=== PATIENT | female | born 1980 | race Caucasian/White ===

== ENCOUNTER → 2018-01-27 14:01 | Outpatient (CLI) | payer MEDICARE, OTHER, SELFPAY ==
--- NOTE | 2018-01-27 14:03 | US_ITS ---
US transvaginal HISTORY: Pelvic pain, dysfunctional uterine bleeding ITS.REASON: pelvic pain ORDERING PHYSICIAN: Weston Velasco MD PATIENT AGE: 37 years FINDINGS: The uterus measures 8 x 4 x 4 cm with a combined endometrial thickness of 7 mm. No uterine mass or other significant anomalies The left ovary is 3 x 2.6 cm. Blood flow is present. The right ovary is 3 x 2.2 cm. Right ovary was difficult to visualize only well seen on transabdominal images. There is a 2 cm right ovarian cyst. No cul-de-sac fluid evident. IMPRESSION: 2 cm right ovarian cyst otherwise negative pelvic ultrasound
== END ==
PROVIDERS: Family Provider Family Medicine; PCP Family Medicine; Visit Provider Obstetrics & Gynecology
DX: R10.2 Pelvic and perineal pain (principal)
CPT/HCPCS: 76830

== ENCOUNTER → 2018-02-02 14:32 | Outpatient (CLI) | payer MEDICARE, OTHER, SELFPAY ==
[2018-02-02 16:04] LABS: Thyroid Stimulating Hormone 1.36 uIU/ml (0.358-3.740)
== END ==
PROVIDERS: PCP Family Medicine; Visit Provider Obstetrics & Gynecology
DX: R53.83 Other fatigue (principal); E66.9 Obesity, unspecified
CPT/HCPCS: 36415; 84443

== ENCOUNTER → 2018-08-15 12:23 | Outpatient (CLI) | payer MEDICARE, OTHER, SELFPAY ==
[2018-08-15 13:54] LABS: Urine Pregnancy, HCG Qual. Negative (Negative)
[2018-08-15 13:55] LABS: Amphetamine/Metha Screen,Urine Negative ng/mL (<1000); Barbiturates Screen,Urine Negative ng/mL (<200); Benzodiazepines Screen,Urine Negative ng/mL (<200); Cannabinoid Screen,Urine Negative ng/mL (<50); Cocaine Screen,Urine Negative ng/mL (<300); Methadone Screen,Urine Negative ng/mL (<300); Opiate Screen,Urine Negative ng/mL (<300); Phencyclidine Screen,Urine Negative ng/mL (<25)
[2018-08-15 15:01] LABS: Chol/HDL Ratio 2.9 (1-3.5); Cholesterol 209 mg/dL (140-200); HDL Cholesterol 71 mg/dL (29-89); LDL Cholesterol 124 mg/dL (0-130); Triglycerides 70 mg/dL (30-200); VLDL Cholesterol 14 mg/dL (0-40)
== END ==
PROVIDERS: PCP Family Medicine; Visit Provider Psychiatry & Neurology Psychiatry
DX: F31.9 Bipolar disorder, unspecified (principal); F43.12 Post-traumatic stress disorder, chronic; R45.86 Emotional lability; Z79.899 Other long term (current) drug therapy
CPT/HCPCS: 36415; 80061; 80305; 81025

== ENCOUNTER → 2018-09-03 09:43 | Outpatient (CLI) | payer MEDICARE, OTHER, SELFPAY ==
--- NOTE | 2018-09-03 09:54 | XR_ITS ---
XR shoulder RT min 2V Ordering Physician: Mariposa Jeronimo MD Patient Age: 37 years: Female HISTORY: ITS.REASON: rt shoulder. Fell off ladder one week ago with numbness and tingling in the hand. TECHNIQUE: 3 views right shoulder. AP internal and external rotation view along with Y view COMPARISON : 05/22/2018 right clavicle radiograph and right shoulder radiograph from the same day. FINDINGS No fracture nor dislocation The glenohumeral joint appears intact. Humeral head and neck appear intact. AC joint stable and overall satisfactory. There is a tiny lucency probable small subchondral cyst at the acromial margin of the AC joint-this measures up to 2.3 mm. Likely was present on previous clavicle study stable feature.. No other erosive changes evident elsewhere. Sidney the right lung clear. No cervical ribs. Right shoulder appears unchanged since 05/22/2018 studies otherwise IMPRESSION: Right shoulder intact with no fracture nor dislocation. . Glenohumeral joint is intact. AC joint intact. No acute or new findings versus May 2018.
== END ==
PROVIDERS: PCP Family Medicine; Visit Provider Orthopaedic Surgery
DX: M67.919 Unspecified disorder of synovium and tendon, unspecified shoulder (principal)
CPT/HCPCS: 73030

== ENCOUNTER → 2019-01-14 13:53 | Outpatient (CLI) | payer MEDICARE, OTHER, SELFPAY ==
--- NOTE | 2019-01-14 13:54 | CT_ITS ---
PROCEDURE: CT ABDOMEN PELVIS WO CON CLINICAL HISTORY: kidney stone Right flank pain COMPARISON: No exams were available for comparison TECHNIQUE: Axial images obtained with sagittal and coronal reformats. All CT scans at the facility use one or more dose reduction, viz: automated exposure control, ma/kV adjustment per patient size (including targeted exams where dose is matched to indication, i.e. head), or iterative reconstruction technique. FINDINGS: There is a calcified granuloma in the right middle lobe. There are minimal atelectatic or fibrotic changes in the lingula. The liver, gallbladder, spleen, and adrenal glands have an unremarkable appearance. There has been a prior left nephrectomy. The right kidney has an unremarkable appearance. No hydronephrosis. No renal or ureteral calculi. No evidence of appendicitis, intestinal obstruction, or free air. No evidence of diverticulitis. No pelvic mass abnormal fluid collection or focal inflammatory change of the pelvis. Unremarkable appearing urinary bladder. No acute bony findings. IMPRESSION: Prior left nephrectomy. No evidence of mass within the nephrectomy bed. No right renal calculi or ureteral calculi. Unremarkable appearing appendix No acute finding Dictated by: Marquis Abebe MD 01/14/2019 16:55 Signed by: <Electronically signed by Marquis Abebe MD in [facility]> 01/14/2019 16:55
== END ==
PROVIDERS: PCP Family Medicine; Visit Provider Urology
DX: N20.0 Calculus of kidney (principal)
CPT/HCPCS: 74176

== ENCOUNTER → 2019-10-04 14:05 | Outpatient (CLI) | payer MEDICARE, OTHER, SELFPAY ==
[2019-10-04 15:58] LABS: Chloride 101 mmol/L (98-107); Sodium 137 mmol/L (136-145)
[2019-10-04 16:00] LABS: Blood Urea Nitrogen 11 mg/dl (7-17); Estimated Glomerular Filt Rate 111 ml/min (>60); GFR (African American) 135 ML/MIN (>60)
[2019-10-04 16:01] LABS: Alanine Aminotransferase 28 U/L (12-78); Albumin Level 3.4 g/dl (3.5-5.0); Alkaline Phosphatase 111 U/L (38-126); Aspartate Amino Transferase 28 U/L (14-36); Bilirubin,Total 0.2 mg/dl (0.2-1.3); Calcium 8.9 mg/dl (8.4-10.2); Carbon Dioxide 33 mmol/L (22.0-30.0); Globulin 3.4 g/dL (1.3-3.2); Glucose 115 mg/dl (74-100); Total Protein,Serum 6.8 g/dl (6.3-8.2)
[2019-10-04 16:33] LABS: Thyroid Stimulating Hormone 2.56 uIU/mL (0.465-4.68)
[2019-10-06 12:56] LABS: FSH 3.8 mIU/mL (.); LH 0.4 mIU/mL (.)
== END ==
PROVIDERS: Visit Provider Obstetrics & Gynecology
DX: N28.9 Disorder of kidney and ureter, unspecified (principal); R09.89 Other specified symptoms and signs involving the circulatory and respiratory systems
CPT/HCPCS: 36415; 80053; 83001; 83002; 84443

== ENCOUNTER → 2020-01-12 09:33 | Outpatient (CLI) | payer MEDICARE, OTHER, SELFPAY ==
--- NOTE | 2020-01-12 09:33 | US_ITS ---
PROCEDURE: US TRANSVAGINAL CLINICAL INDICATION: US- pelvic pain amenorrhea COMPARISON: US TRANVAG US transvaginal from 01/27/2018 FINDINGS: UTERUS: 7cm x 4cmx 3cm with a combined endometrial thickness of 5mm LEFT OVARY: [id number] with a volume of 2.2ml. RIGHT OVARY: [id number] with a volume of 1.8ml. There is a 1.9 cm area of decreased echogenicity along the anterior aspect of the uterus on the right consistent with a fibroid. No cul-de-sac fluid. Unremarkable adnexa IMPRESSION: Small uterine fibroid otherwise negative pelvic ultrasound Dictated b Marquis Abebe MD 01/12/2020 17:01 Marquis Abebe MD in [facility] 01/12/2020 17:01
== END ==
PROVIDERS: PCP Family Medicine; Visit Provider Obstetrics & Gynecology
DX: N91.2 Amenorrhea, unspecified (principal); R10.2 Pelvic and perineal pain
CPT/HCPCS: 76830

== ENCOUNTER → 2020-04-10 11:33 | Outpatient (CLI) | payer MEDICARE, OTHER, SELFPAY ==
[2020-04-10 11:55] LABS: Basophils # 0.1 K/mm3 (0-0.2); Basophils % 0.8 % (0.1-2.0); Eosinophils # 0.3 K/mm3 (0.0-0.4); Eosinophils % 2.6 % (0.1-12.0); Hematocrit 49.4 % (37.0-47.0); Hemoglobin 14.9 g/dL (12.2-16.2); Lymphocytes # 2.8 K/mm3 (0.7-4.5); Lymphocytes % 26.3 % (10-50); Mean Corpuscular HGB Conc 30.1 g/dL (31.8-35.4); Mean Corpuscular Hemoglobin 26.8 pg (27.0-31.2); Mean Platelet Volume 7.2 fl (7.4-10.4); Monocytes # 0.5 K/mm3 (0.1-1.0); Monocytes % 4.6 % (1.7-9.3); Neutrophils # 7.1 K/mm3 (1.8-7.8); Neutrophils % 65.8 % (37.0-80.0); Platelet Count 431 K/mm3 (142-424); Red Blood Count 5.55 M/mm3 (4.20-5.40); Red Cell Distribution Width 16.1 % (11.5-17.5); White Blood Count 10.8 K/mm3 (4.8-10.8)
[2020-04-10 13:52] LABS: Chloride 99 mmol/L (98-107); Potassium 4.7 mmoL/L (3.5-5.1); Sodium 139 mmol/L (136-145)
[2020-04-10 13:54] LABS: Alanine Aminotransferase 37 U/L (12-78); Aspartate Amino Transferase 33 U/L (14-36); Bilirubin,Total 0.5 mg/dl (0.2-1.3); Blood Urea Nitrogen 10 mg/dl (7-17); Estimated Glomerular Filt Rate 111 ml/min (>60); GFR (African American) 134 ML/MIN (>60)
[2020-04-10 13:55] LABS: Albumin Level 3.7 g/dl (3.5-5.0); Alkaline Phosphatase 161 U/L (38-126); Anion Gap 7.7 mEq/L (5-15); Calcium 9.1 mg/dl (8.4-10.2); Carbon Dioxide 37 mmol/L (22.0-30.0); Chol/HDL Ratio 5.5 (1-3.5); Cholesterol 240 mg/dl (140-200); Globulin 3.6 g/dL (1.3-3.2); Glucose 169 mg/dl (74-100); HDL Cholesterol 44 mg/dl (40-60); Total Protein,Serum 7.3 g/dl (6.3-8.2); Triglycerides 189 mg/dl (30-150); VLDL Cholesterol 38 mg/dL (0-40)
[2020-04-10 14:26] LABS: Thyroid Stimulating Hormone 1.77 uIU/mL (0.465-4.68)
[2020-04-10 14:48] LABS: Hemoglobin A1C 8.1 % (4.0-6.0)
[2020-04-10 15:26] LABS: Barbiturates Screen,Urine Negative ng/ml (<200)
[2020-04-10 15:27] LABS: Amphetamine/Metha Screen,Urine Negative ng/ml (<1000); Benzodiazepines Screen,Urine Negative ng/ml (<200)
[2020-04-10 15:28] LABS: Cocaine Screen,Urine Negative ng/ml (<300); Methadone Screen,Urine Negative ng/ml (<300)
[2020-04-10 15:29] LABS: Cannabinoid Screen,Urine Positive ng/ml (<50)
[2020-04-10 15:30] LABS: Opiate Screen,Urine Negative ng/ml (<300); Phencyclidine Screen,Urine Negative ng/ml (<25)
== END ==
PROVIDERS: Visit Provider Nurse Practitioner Psychiatric/Mental Health
DX: F31.9 Bipolar disorder, unspecified (principal); Z79.899 Other long term (current) drug therapy
CPT/HCPCS: 36415; 80053; 80061; 80305; 83036; 84443; 85025

== ENCOUNTER 2020-08-19 12:12 | Emergency (ER) | payer MEDICARE, OTHER, SELFPAY ==
[2020-08-19 12:13] VITALS: BP 125/94; PULSE 96; RESP 18; TEMP 36.7; O2SAT 97; BMI 45.1
--- NOTE | 2020-08-19 12:28 | CT_ITS ---
PROCEDURE: CT HEAD/BRAIN WO CON CLINICAL INDICATION: headache, intractable COMPARISON: No exams were available for comparison TECHNIQUE: Axial images obtained. All CT scans at the facility use one or more dose reduction, viz: automated exposure control, ma/kV adjustment per patient size (including targeted exams where dose is matched to indication, i.e. head), or iterative reconstruction technique. FINDINGS: No midline shift, mass effect, intracranial hemorrhage, hydrocephalus, or extra-axial fluid collection is evident. The calvarium has an unremarkable appearance. No mastoid effusion. No sinus air-fluid level. IMPRESSION: No acute intracranial finding Dictated by: Marquis Abebe MD 08/19/2020 14:13 Marquis Abebe MD in [facility] 08/19/2020 14:13
--- NOTE | 2020-08-19 12:29 | CT_ITS ---
PROCEDURE: CT CERVICAL SPINE WO CON CLINICAL INDICATION: midline c spine tenderness Neck injury with pain, contusion/abrasion or hematoma, cervical sprain/strain the COMPARISON: No exams were available for comparison TECHNIQUE: Axial images obtained with sagittal and coronal reformats. All CT scans at the facility use one or more dose reduction, viz: automated exposure control, ma/kV adjustment per patient size (including targeted exams where dose is matched to indication, i.e. head), or iterative reconstruction technique. Axial spiral CT scanning performed of the cervical spine beginning at the base of the skull and continuing to the upper T-spine. 3-D multiplanar reconstruction with 3-D manipulation of volumetric data set in image rendering was completed by the radiologist and/or technologist with the supervision of the radiologist on independent workstation. FINDINGS: No fracture nor subluxation is evident. Normal prevertebral soft tissues. Facets, neural foramen and vertebral bodies intact and unremarkable. Normal C1/C2 relationships. Apices of lungs are clear with no acute findings. IMPRESSION: Cervical spine intact with no fracture nor subluxation. Dictated by: Marquis Abebe MD 08/19/2020 14:15 Marquis Abebe MD in [facility] 08/19/2020 14:15
--- NOTE | 2020-08-19 12:34 | HMH.EDHA ---
ED Disposition Clinical Impression: Migraine Qualifiers: Migraine type: without aura Status migrainosus presence: without status migrainosus Intractability: not intractable Qualified Code(s): G43.009 - Migraine without aura, not intractable, without status migrainosus Disposition: Home, Self-Care Condition on Discharge: Good Instructions: Migraine -- Adult, DI for Sinus Headache Referrals: Michael Ha [Primary Care Provider] - Time of Disposition: 15:45 - Critical Care Critical Care Time: No Attestation: On 08/19/20, the high probability of a clinically significant, sudden or life threatening deterioration of the following system(s) required my full and direct attention, intervention and personal management. The time I documented below is in addition to time spent performing reported procedures but includes the following listed in this critical care notation. Medical Decision Making - Chris Inquiry Pt receiving controlled substance: No Vital Signs: 08/19/20 12:13 08/19/20 14:01 08/19/20 14:31 Temperature 98.1 F Temperature Source Oral Pulse Rate 90 91 H Pulse Rate [Left Radial] 96 H Respiratory Rate 18 Blood Pressure 153/87 H 169/93 H Blood Pressure [Right Arm] 125/94 H Blood Pressure Mean 104 112 Blood Pressure Mean [Right Arm] 104 Blood Pressure Source [Right Arm] Automatic Cuff Blood Pressure Position [Right Arm] Sitting 02 Sat by Pulse Oximetry 97 94 L 95 Oxygen Delivery Method Room Air Room Air Room Air - Lab Data Lab Results 08/19/20 12:45: WBC 11.2 H, RBC 5.17, Hgb 14.2, Hct 46.0, MCV 88.8, MCH 27.5, MCHC 31.0 L, RDW 14.8, Plt Count 404, MPV 6.8 L, Neut % (Auto) 61.0, Lymph % (Auto) 31.2, Keith % (Auto) 5.5, Eos % (Auto) 1.8, Baso % (Auto) 0.6, Neut # (Auto) 6.9, Lymph # (Auto) 3.5, Keith # (Auto) 0.6, Eos # (Auto) 0.2, Baso # (Auto) 0.1 08/19/20 12:45: Sodium 138, Potassium 4.2, Chloride 104, Carbon Dioxide 28, Anion Gap 10.2, BUN 7, Creatinine 0.70, Estimated Creat Clear 100, Estimated GFR 93, Est GFR ( Amer) 112, Glucose 169 H, Calcium 9.4, Total Bilirubin 0.3, AST 32, ALT 34, Alkaline Phosphatase 139 H, C-Reactive Protein 39.2 H, Total Protein 7.6, Albumin 4.0, Globulin 3.6 H, Albumin/Globulin Ratio 1.1 Result diagrams: 08/19/20 12:45 08/19/20 12:45 Orders (Tests/Meds): ED MEDICATIONS Discontinued Medications Generic Name Dose Route Start Last Admin Trade Name Freq PRN Reason Stop Dose Admin Diphenhydramine HCl 25 mg 08/19/20 12:31 08/19/20 13:15 Diphenhydramine 50mg/Ml Vial IV 08/19/20 12:32 25 mg ONCE ONE Administration Sodium Chloride 1,000 mls @ 999 mls/hr 08/19/20 12:45 08/19/20 13:08 Sod Chlor 0.9% 1000ml Bag IV 08/19/20 13:45 999 mls/hr .Q1H1M SKIP Administration Magnesium Sulfate 2 gm/ Sodium 104 mls @ 100 mls/hr 08/19/20 14:31 08/19/20 14:38 Chloride IV 08/19/20 15:33 100 mls/hr ONCE ONE Administration Ketorolac Tromethamine 15 mg 08/19/20 12:30 08/19/20 13:17 Ketorolac 30mg/Ml Vial IV 08/19/20 12:31 15 mg ONCE ONE Administration Prochlorperazine Edisylate 10 mg 08/19/20 12:30 08/19/20 13:11 Prochlorperazine 10mg/2ml Vial IV 08/19/20 12:31 10 mg ONCE ONE Administration Medical Decision Narrative: Upon presentation patient is hemodynamically stable and nontoxic-appearing. Patient presents with headache of 2 days duration responds well to ibuprofen as well as neck pain after a fall. Differential diagnosis includes but not limited to migraine, intraparenchymal hemorrhage, subdural hematoma, C-spine fracture, ligamentous injury, meningitis. On physical exam, patient has midline spinal tenderness as well nausea. CT head, CT C-spine were obtained along with basic labs including a CBC, CMP, CRP. Patient was given a migraine cocktail consisting of 15 mg IV Toradol, 10 mg IV Compazine, 25 mg IV Benadryl and a 1 L bolus for symptom management. I reviwed labs and images. Patient's labs demonst
[2020-08-19 12:58] LABS: Basophils # 0.1 K/mm3 (0-0.2); Basophils % 0.6 % (0.1-2.0); Eosinophils # 0.2 K/mm3 (0.0-0.4); Eosinophils % 1.8 % (0.1-12.0); Hemoglobin 14.2 g/dL (12.2-16.2); Lymphocytes # 3.5 K/mm3 (0.7-4.5); Lymphocytes % 31.2 % (10-50); Mean Corpuscular Hemoglobin 27.5 pg (27.0-31.2); Mean Corpuscular Volume 88.8 fl (81-99); Mean Platelet Volume 6.8 fl (7.4-10.4); Monocytes # 0.6 K/mm3 (0.1-1.0); Monocytes % 5.5 % (1.7-9.3); Neutrophils # 6.9 K/mm3 (1.8-7.8); Platelet Count 404 K/mm3 (142-424); Red Blood Count 5.17 M/mm3 (4.20-5.40); Red Cell Distribution Width 14.8 % (11.5-17.5); White Blood Count 11.2 K/mm3 (4.8-10.8)
[2020-08-19 13:08] LABS: Alanine Aminotransferase 34 U/L (12-78); Albumin/Globulin Ratio 1.1 (1.1-1.8); Alkaline Phosphatase 139 U/L (38-126); Anion Gap 10.2 mEq/L (5-15); Aspartate Amino Transferase 32 U/L (14-36); Bilirubin,Total 0.3 mg/dl (0.2-1.3); Blood Urea Nitrogen 7 mg/dl (7-17); Calcium 9.4 mg/dl (8.4-10.2); Carbon Dioxide 28 mmol/L (22.0-30.0); Chloride 104 mmol/L (98-107); Creatinine Clearance Estimated 100 mL/min (50-200); Estimated Glomerular Filt Rate 93 ml/min (>60); GFR (African American) 112 ML/MIN (>60); Globulin 3.6 g/dL (1.3-3.2); Glucose 169 mg/dl (74-100); Potassium 4.2 mmoL/L (3.5-5.1); Sodium 138 mmol/L (136-145); Total Protein,Serum 7.6 g/dl (6.3-8.2)
[2020-08-19 13:13] LABS: C-Reactive Protein 39.2 mg/L (0-4)
[2020-08-19 14:01] VITALS: BP 153/87; PULSE 90; O2SAT 94
[2020-08-19 14:31] VITALS: BP 169/93; PULSE 91; O2SAT 95
[2020-08-19 15:53] VITALS: BP 143/76; PULSE 71; RESP 16; TEMP 36.8; O2SAT 98
== END 2020-08-19 15:52 | disposition home or self-care (01) ==
PROVIDERS: Emergency Provider Emergency Medicine; PCP Family Medicine
DX: G43.009 Migraine without aura, not intractable, without status migrainosus (principal); M54.2 Cervicalgia; F41.8 Other specified anxiety disorders; F17.210 Nicotine dependence, cigarettes, uncomplicated; Z79.899 Other long term (current) drug therapy
CPT/HCPCS: 70450; 72125; 80053; 85025; 86140; 99282

== ENCOUNTER → 2020-10-19 12:47 | Outpatient (CLI) | payer MEDICARE, OTHER, SELFPAY ==
--- NOTE | 2020-10-19 13:11 | MR_ITS ---
PROCEDURE INFORMATION: Exam: MR Head Without and With Contrast Exam date and time: 10/19/2020 1:11 PM Age: 39 years old Clinical indication: Dizziness; Additional info: PT C/O dizziness and headache, PT states she ws dx with popcorn seizures at the age of [address] brain done 08/19/2020 25 ml prohance used for contrast lot # [id number] exp 07/2022 and lot# [id number] exp 07/2022 bun 13 creat .7 gfr 93 TECHNIQUE: Imaging protocol: MR of the head without and with intravenous contrast. Contrast material: PROHANCE; Contrast volume: 25 ml; Contrast route: IV; COMPARISON: CT HEAD/BRAIN WO CON 08/19/2020 12:50 PM FINDINGS: Limitations: Motion. Brain: There is no restricted diffusion noted to indicate ischemia. There is no mass, mass effect or midline shift. There is no enhancing mass or lesion. There is no abnormal T1, T2 or FLAIR signal. Midline structures appear intact Cerebral ventricles: The ventricles are normal in size, shape and position. Bones/joints: Marrow signal is grossly maintained. Paranasal sinuses: Visualized paranasal sinuses are clear. Mastoid air cells: Mastoid air cells are clear. Orbital cavity: Unremarkable. Soft tissues: Unremarkable. Other vasculature: The flow voids within the distal vertebral arteries, basilar artery, distal internal carotid arteries and superior sagittal sinus are present. Other findings: The prepontine cistern and cerebellopontine angles are unremarkable. The midline structures are grossly intact. IMPRESSION: 1. Slightly limited by motion. 2. MRI brain within normal limits. Specifically no enhancing mass or lesion identified.
[2020-10-19 13:21] LABS: Blood Urea Nitrogen 13 mg/dl (7-17); Estimated Glomerular Filt Rate 93 ml/min (>60); GFR (African American) 112 ML/MIN (>60)
== END ==
PROVIDERS: PCP Family Medicine; Visit Provider Specialist
DX: R40.4 Transient alteration of awareness (principal); G43.019 Migraine without aura, intractable, without status migrainosus
CPT/HCPCS: 36415; 70553; 82565; 84520; A9576

== ENCOUNTER → 2020-10-23 20:06 | Outpatient (CLI) | payer MEDICARE, OTHER, SELFPAY | PROVIDERS: PCP Family Medicine; Visit Provider Specialist | DX: G47.33 Obstructive sleep apnea (adult) (pediatric) (principal); G47.36 Sleep related hypoventilation in conditions classified elsewhere | CPT/HCPCS: 95811 ==

== ENCOUNTER → 2020-10-31 08:33 | Outpatient (CLI) | payer MEDICARE, OTHER, SELFPAY | PROVIDERS: PCP Family Medicine; Visit Provider Specialist | DX: G47.50 Parasomnia, unspecified (principal) | CPT/HCPCS: 95819 ==

== ENCOUNTER → 2020-11-22 14:38 | Outpatient (CLI) | payer MEDICARE, OTHER, SELFPAY ==
[2020-11-24 10:25] LABS: Rapid Plasma Reagin Ab Titer Non Reactive (NonRea<1:1)
== END ==
PROVIDERS: Visit Provider Nurse Practitioner Family
DX: B86 Scabies (principal); F17.200 Nicotine dependence, unspecified, uncomplicated
CPT/HCPCS: 36415; 86592

== ENCOUNTER → 2022-04-10 12:58 | Outpatient (CLI) | payer MEDICARE, OTHER, SELFPAY ==
--- NOTE | 2022-04-10 13:09 | MR_ITS ---
FINAL REPORT CLINICAL HISTORY: LOW BACK PAIN lower back pain unable to stand left leg pain , numbness, tingling x 2 months FINDINGS: Multiplanar MR imaging of the lumbar spine was performed without contrast. On the sagittal T2-weighted images, there is abnormal decreased signal at L2-3, L4-5, and L5-S1.. The vertebrae are of normal height. The vertebral alignment is normal. There is no acute osseous abnormality. No compression deformity is identified. L1-2: There is no significant canal stenosis or neural foraminal narrowing. L2-3: There is no significant canal stenosis or neural foraminal narrowing. L3-4: There is no significant canal stenosis or neural foraminal narrowing. L4-5: There is mild diffuse disc bulge. There is bilateral facet hypertrophy. There is [id number] bilateral neural foraminal narrowing. L5-S1: There is a mild diffuse disc bulge. There is endplate hypertrophy and bilateral facet hypertrophy. There is [id number] bilateral neural foraminal narrowing. IMPRESSION: Disc bulges at L4-5 and L5-S1 with bilateral neural foraminal compromise. Reviewed, Interpreted and Dictated by Alejandro Madrigal MD Transcribed by April Dai Authenticated and [facility]
== END ==
PROVIDERS: PCP Family Medicine; Visit Provider Orthopaedic Surgery
DX: M54.59 Other low back pain (principal)
CPT/HCPCS: 72148; 76376

== ENCOUNTER 2022-07-27 12:14 | Emergency (ER) | payer MEDICARE, OTHER, SELFPAY ==
[2022-07-27 12:45] VITALS: BP 138/88; PULSE 95; RESP 20; TEMP 36.9; O2SAT 94; BMI 46.7
--- NOTE | 2022-07-27 12:59 | EXP.UTC ---
Discharge Plan Disposition Patient Disposition: Home, Self-Care Condition: Good Prescriptions Prescriptions: New cephalexin 500 mg capsule 500 mg PO QID 7 Days Qty: 28 0RF ibuprofen [IBU] 800 mg tablet 800 mg PO TIDP PRN (Reason: Moderate Pain) Qty: 20 0RF methylprednisolone [Medrol (Leon)] 4 mg tablets,dose pack See Rx Instructions .Route .COMPLEX 6 Days Qty: 21 0RF Rx Instructions: taper pack; No Action omeprazole magnesium [Prilosec OTC] 20 mg tablet,delayed release (DR/EC) 20 mg PO DAILY albuterol sulfate 90 mcg/actuation aerosol powdr breath activated 1 inh INHALATION Q4H lamotrigine 25 mg tablet 100 mg PO BID buprenorphine-naloxone 8-2 mg film 1 film BUCCAL DAILY lurasidone 60 mg tablet 80 mg PO DAILY promethazine 25 mg tablet 25 mg PO ONCE PRN glipizide 10 mg tablet 10 mg PO BID empagliflozin 25 mg tablet 25 mg PO DAILY propranolol 10 mg tablet 10 mg PO TID mirtazapine 30 mg tablet 30 mg PO HS topiramate 25 mg tablet 25 mg PO DAILY Nurtec ODT 75 mg tablet,disintegrating 75 mg PO .every other day 30 Days Qty: 15 2RF Rx Instructions: Take 1 tab by mouth every other day for migraine prophylaxis. 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 Instructions Additional Instructions/Restrictions: Take medication as prescribed Follow up with your Family Doctor in the next 48 hours for re-evaluation Return if needed Straight to ER if life threatening symptoms, shortness of breath, chest pain or any worsening signs of infection Clinical Impressions Clinical Impression: SLE (systemic lupus erythematosus related syndrome) Instructions Patient Instructions: Systemic Lupus Erythematosus, DI for Cellulitis -- Adult Discharge ED Provider: Anastasia Aguilar [facility] [place] HPI General Stated complaint: bumps on hand and legs Mode of Arrival: Ambulatory Source of Information: Patient Limitations: No Limitations Time Seen by Provider: 07/27/22 12:59 Description of Symptoms (Recalled from Triage Doc. by RN): blisters and open sores on bilateral legs and hands. Stated that it hurts. HEENT Symptoms (Recalled from RN notes): No Resp Symptoms (Recalled from RN notes): No Skin Symptoms (Recalled from RN notes): Yes MS Symptoms (Recalled from RN notes): No Functional Status (Recalled from RN notes): n/a History of Present Illness Provider Complaint: Patient states she has been having break outs on and off for the last couple of months and she has scratched several of these blisters and now thinks they may be getting infected Related Data Home Medications Medication Instructions Recorded Confirmed omeprazole magnesium 20 mg 20 mg PO DAILY unknown 01/19/18 12/31/20 tablet,delayed release (Prilosec OTC) albuterol sulfate 90 mcg/actuation 1 inh inhalation Q4H 09/03/18 12/31/20 breath activated powder inhaler buprenorphine 8 mg-naloxone 2 mg 1 film buccal DAILY 10/04/19 12/31/20 sublingual film lurasidone 60 mg tablet 80 mg PO DAILY 01/05/20 12/31/20 empagliflozin 25 mg tablet 25 mg PO DAILY 09/25/20 12/31/20 glipizide 10 mg tablet 10 mg PO BID 09/25/20 12/31/20 lamotrigine 25 mg tablet 100 mg PO BID 09/25/20 12/31/20 promethazine 25 mg tablet 25 mg PO ONCE PRN 09/25/20 12/31/20 mirtazapine 30 mg tablet 30 mg PO HS 11/12/20 12/31/20 propranolol 10 mg tablet 10 mg PO TID 11/12/20 12/31/20 topiramate 25 mg tablet 25 mg PO DAILY 12/31/20 12/31/20 Previous Rx's Medication Instructions Recorded acetaminophen 500 mg tablet 1,000 mg PO Q8H PRN (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
[2022-07-27 13:59] VITALS: BP 138/88; PULSE 95; RESP 20; TEMP 36.9; O2SAT 98
== END 2022-07-27 13:59 | disposition home or self-care (01) ==
PROVIDERS: Emergency Provider Nurse Practitioner; PCP Family Medicine
DX: M32.9 Systemic lupus erythematosus, unspecified (principal)
CPT/HCPCS: 99212; 99213; G0463

== ENCOUNTER 2022-12-05 18:18 | Emergency (ER) | payer MEDICARE, OTHER, SELFPAY ==
[2022-12-05 18:20] VITALS: BP 140/79; PULSE 107; RESP 20; TEMP 36.7; O2SAT 95; BMI 48.4
[2022-12-05 18:45] VITALS: PULSE 104; O2SAT 92
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
[2022-12-05 19:15] VITALS: BP 140/79; PULSE 104; RESP 20; TEMP 36.7; O2SAT 95
== END 2022-12-05 19:20 | disposition home or self-care (01) ==
PROVIDERS: Emergency Provider Emergency Medicine; PCP Family Medicine
DX: R51.9 Headache, unspecified (principal); R42 Dizziness and giddiness; J06.9 Acute upper respiratory infection, unspecified; H62.43 Otitis externa in other diseases classified elsewhere, bilateral; F17.210 Nicotine dependence, cigarettes, uncomplicated
CPT/HCPCS: 96372; 99283; 99284

== ENCOUNTER 2023-11-13 14:10 | Emergency (ER) | payer MEDICARE, OTHER, SELFPAY ==
[2023-11-13 14:19] VITALS: BP 149/96; PULSE 105; RESP 16; TEMP 36.5; O2SAT 97; BMI 45.1
[2023-11-13 14:30] VITALS: BP 125/82; PULSE 97; O2SAT 95
--- NOTE | 2023-11-13 14:50 | ED_ITS ---
Discharge Plan Disposition Patient Disposition: Home, Self-Care Condition: Good Prescriptions Prescriptions: New ketorolac 10 mg tablet 10 mg PO Q8H 5 Days Qty: 15 0RF Discontinued ibuprofen [IBU] 800 mg tablet 800 mg PO TIDP PRN (Reason: Moderate Pain) Qty: 20 0RF No Action omeprazole magnesium [Prilosec OTC] 20 mg tablet,delayed release (DR/EC) 20 mg PO DAILY albuterol sulfate 90 mcg/actuation aerosol powdr breath activated 1 inh INHALATION Q4H lamotrigine 25 mg tablet 100 mg PO BID buprenorphine-naloxone 8-2 mg film 1 film BUCCAL DAILY lurasidone 60 mg tablet 80 mg PO DAILY promethazine 25 mg tablet 25 mg PO ONCE PRN glipizide 10 mg tablet 10 mg PO BID empagliflozin 25 mg tablet 25 mg PO DAILY propranolol 10 mg tablet 10 mg PO TID mirtazapine 30 mg tablet 30 mg PO HS topiramate 25 mg tablet 25 mg PO DAILY Nurtec ODT 75 mg tablet,disintegrating 75 mg PO .every other day 30 Days Qty: 15 2RF Rx Instructions: Take 1 tab by mouth every other day for migraine prophylaxis. cephalexin 500 mg capsule 500 mg PO QID 7 Days Qty: 28 0RF methylprednisolone [Medrol (Leon)] 4 mg tablets,dose pack See Rx Instructions .Route .COMPLEX 6 Days Qty: 21 0RF Rx Instructions: taper pack; Cortisporin-TC 3.3-3-10-0.5 mg/mL drops,suspension 4 drp otic (ear) TID Qty: 10 0RF ciprofloxacin HCl [Cipro] 250 mg tablet 250 mg PO BID Qty: 20 0RF acetaminophen 500 MG tablet 1,000 mg PO Q8H PRN (Reason: (Cleaning Attendant Use Only) Pain Per Pt) Qty: 60 0RF Referrals Follow up/Referrals: Michael Ha [Primary Care Provider] - See instructions Activity Restrictions/Add. Instructions Additional Instructions/Restrictions: As we discussed, it is likely that your symptoms are due to having had a concussion with your fall. Please discontinue the new medication that you started that has made you dizzy when you take it. Please follow-up with your primary care doctor. Please return with any new or worsening symptoms. I have prescribed a pain medication that is an anti-inflammatory that you can use as needed for pain. Clinical Impressions Clinical Impression: Concussion Qualifiers: Encounter type: initial encounter Loss of consciousness presence/duration: without LOC Qualified Code(s): S06.0X0A - Concussion without loss of consciousness, initial encounter Discharge ED Provider: Octavio Blackman Adult HPI General Chief complaint: PAIN Stated complaint: AO-Pain and swellin on Left side of head and elbow Time Seen by Provider: 11/13/23 14:50 Mode of Arrival: Ambulatory Source of Information: Patient and Spouse Limitations: No Limitations Description of Symptoms (Recalled from ER Triage Doc. by RN): pt reports 3-4d a go she was sitting up and fell asleep then falling foreward. pt reports she hit her L lutheran and L elbow on a table. pt denies LOC. pt wants checked out because she is not feeling any better. pt c/o L lutheran, eyebrown and eye pain that is a 10/10 and throbbing in nature. pt also c/o L elbow pain that is sharp in nature and a 9/10. pt has full ROM. pt states she has a hx of seizures but has not had one in a long time. pt does not take medication for seizures. History of Present Illness HPI narrative: The patient presents with a chief complaint of persistent pain after falling three days ago. She reports falling twice, first hitting the left side of her body and then the front left side of her forehead and elbow on a hardwood table. The falls occurred around 2 or 3 o'clock in the morning and were seemingly caused by dizziness and weakness after taking Phenergan. She denies losing consciousness during the falls and has not experienced double vision or blurry vision since the incident. The patient has not been feeling sick recently and denies any neck pain. She has not experienced any nausea or vomiting since the falls. Please note that above description of symptoms, in this electronic medical record under categorization of recalled from ER triage doctor by RN are reflective of an initial nursing assessment, however, is not reflective of my full history and physical exam that was personally taken and clarified. Consequentially, this preceding description of symptoms, which may include the patient's categorized chief complaint in the EMR, do not reflect my personal clinical impression, and the ultimate description of history of present illness and patient stated complaints should be deferred to this section of the note. Unless stated otherwise or congruent with this section of the note, additional signs, symptoms, or incongruence should be interpreted as inaccurate with my clinical impression. Related Data Home Medications Medication Instructions Recorded Confirmed omeprazole magnesium 20 mg 20 mg PO DAILY unknown 01/19/18 12/31/20 tablet,delayed release (Prilosec OTC) albuterol sulfate 90 mcg/actuation 1 inh inhalation Q4H 09/03/18 12/31/20 breath activated powder inhaler buprenorphine 8 mg-naloxone 2 mg 1 film buccal DAILY 10/04/19 12/31/20 sublingual film lurasidone 60 mg tablet 80 mg PO DAILY 01/05/20 12/31/20 empagliflozin 25 mg tablet 25 mg PO DAILY 09/25/20 12/31/20 glipizide 10 mg tablet 10 mg PO BID 09/25/20 12/31/20 lamotrigine 25 mg tablet 100 mg PO BID 09/25/20 12/31/20 promethazine 25 mg tablet 25 mg PO ONCE PRN 09/25/20 12/31/20 mirtazapine 30 mg tablet 30 mg PO HS 11/12/20 12/31/20 propranolol 10 mg tablet 10 mg PO TID 11/12/20 12/31/20 topiramate 25 mg tablet 25 mg PO DAILY 12/31/20 12/31/20 Previous Rx's Medication Instructions Recorded acetaminophen 500 mg tablet 1,000 mg (2 x 500 mg) PO Q8H PRN 06/21/19 (Cleaning Attendant Use Only) Pain Per Pt #60 tabs rimegepant 75 mg disintegrating 75 mg PO .every other day headache 01/03/21 tablet (Nurtec ODT) prophylaxis 30 days #15 tabs cephalexin 500 mg capsule 500 mg PO QID 7 days #28 caps 07/27/22 methylprednisolone 4 mg tablets in See Rx Instructions .Route 07/27/22 a dose pack (Medrol (Leon)) .COMPLEX 6 days #21 tabs ciprofloxacin HCl 250 mg tablet 250 mg PO BID #20 tabs 12/05/22 (Cipro) [id number] 3.3 4 drp otic (ear) TID #10 mL 12/05/22 mg-3 mg-10 mg-0.5 mg/mL ear drops,susp (Cortisporin-TC) ketorolac 10 mg tablet 10 mg PO Q8H 5 days #15 tabs 11/13/23 Allergies Allergy/AdvReac Type Severity Reaction Status Date / Time morphine Allergy Intermediate VOMITING Verified 11/13/23 14:27 [facility] Disclaimer: The information contained in this section may have been updated after the patient was seen, as this information can be updated by other users. Social History Smoking Status: Current every day smoker tobacco type: cigarettes packs per day: 1 second hand exposure: Yes alcohol intake: never substance use type: former substance user and opiates current occupational status: disabled and other Travel in the last 8 weeks: None household members: other housing: house ROS Obtained: Yes other As per HPI Physical Exam General General appearance: alert and in no apparent distress Head Head exam: atraumatic and normocephalic Eye Eye exam: Present normal appearance Neck Neck exam: Present normal inspection Chest Chest inspection: Present normal inspection and symmetric chest wall rise Respiratory Respiratory exam: Present normal lung sounds bilaterally; Absent respiratory distress Cardiovascular Cardiovascular exam: Present regular rate and normal rhythm Abdominal Exam Abdominal exam: Present soft Neurological Exam Neurological exam: Present alert and oriented X3 Psychiatric Psychiatric exam: Present normal affect and normal mood Skin Skin exam: Present warm and dry Other Other exam information: No clinical evidence of facial trauma, no midline cervical spinal tenderness to palpation, alert, oriented, no open wounds, no palpable skull fracture. Medical Decision Making Medical Records Medical records reviewed: Yes I reviewed the patient's medical records. Chris Inquiry Pt receiving controlled substance: No Vital Signs: 11/13/23 14:19 11/13/23 14:30 11/13/23 15:26 Temperature 97.7 F 97.7 F Temperature Source Oral Oral Pulse Rate 97 H 90 Pulse Rate [Left] 105 H Respiratory Rate 16 16 Blood Pressure 125/82 111/82 Blood Pressure [Right Arm] 149/96 H Blood Pressure Mean [Right Arm] 113 Blood Pressure Source [Right Arm] Automatic Cuff Blood Pressure Position [Right Arm] Standing 02 Sat by Pulse Oximetry 97 95 Oxygen Delivery Method Room Air Room Air Orders (Tests/Meds): ED MEDICATIONS Discontinued Medications Generic Name Dose Route Start Last Admin Trade Name Freq PRN Reason Stop Dose Admin Ketorolac Tromethamine 15 mg 11/13/23 15:16 11/13/23 15:23 Ketorolac 30mg/Ml Vial IM 11/13/23 15:17 15 mg ONCE ONE Administration Medical Decision Narrative: Patient with history and exam per above presenting for evaluation of closed head injury Diagnoses considered include concussion, TBI, no clinical evidence suggestive of intracranial hemorrhage, subdural hematoma, or injury elsewhere. No clinical evidence suggestive of fracture. ED workup and treatment included: EKG, fingerstick blood sugar EKG was independently visualized and interpreted by me significant for sinus rhythm, QTc within normal limits, no acute ST changes. My clinical impression at this time is most consistent with postconcussive syndrome I discussed my clinical impression with patient and answered all questions. At this time, the evidence for any other entities in the differential is insufficient to warrant any further testing or ED observation. This was explained to the patient. The patient was advised that persistent or worsening symptoms require further evaluation. I confirmed the patient's understanding of this discussion. Critical Care Critical Care Time Critical Care Time: No
--- NOTE | 2023-11-13 15:01 | PC.NURSE ---
fsbs 256
--- NOTE | 2023-11-13 15:04 | ECG_ITS ---
APPROVED REPORT Exam: Resting ECG HR:96 bpm ECG Measurements Heart Rate 96 AXES OR 185 P 39 QRSd 90 QRS 11 QT 328 T 15 QTc 382 Conclusion SINUS RHYTHM POSSIBLE LEFT ATRIAL ENLARGEMENT [-0.1mV P-WAVE IN V1/V2] LOW QRS VOLTAGE IN PRECORDIAL LEADS [QRS DEFLECTION < 1.0 mV IN CHEST LEADS] POSSIBLE RIGHT VENTRICULAR CONDUCTION DELAY [RSR (QR) IN V1/V2] POSSIBLE ANTERIOR MYOCARDIAL INFARCTION , OF INDETERMINATE AGE [30 ms Q WAVE IN V3/V4, OR R < 0.2 mV IN V4] ABNORMAL ECG UNCONFIRMED REPORT Electronically signed by : Daniel Matthews, 11/13/2023 23:04:33
[2023-11-13] MEDS: KETOROLAC 30MG/ML VIAL 15 MG IM (15:23)
[2023-11-13 15:26] VITALS: BP 111/82; PULSE 90; RESP 16; TEMP 36.5; O2SAT 97
== END 2023-11-13 15:29 | disposition home or self-care (01) ==
PROVIDERS: Emergency Provider Emergency Medicine; PCP Family Medicine
DX: S06.0X0A Concussion without loss of consciousness, initial encounter (principal); F17.210 Nicotine dependence, cigarettes, uncomplicated; W19.XXXA Unspecified fall, initial encounter
CPT/HCPCS: 93005; 96372; 99283; J1885

== ENCOUNTER 2023-11-17 16:49 | Emergency (ER) | payer MEDICARE, OTHER, SELFPAY ==
[2023-11-17 17:08] VITALS: BMI 45.1
--- NOTE | 2023-11-17 17:09 | ED_ITS ---
Discharge Plan Disposition Patient Disposition: Xfer Other Prescriptions Prescriptions: No Action omeprazole magnesium [Prilosec OTC] 20 mg tablet,delayed release (DR/EC) 20 mg PO DAILY albuterol sulfate 90 mcg/actuation aerosol powdr breath activated 1 inh INHALATION Q4H lamotrigine 25 mg tablet 100 mg PO BID buprenorphine-naloxone 8-2 mg film 1 film BUCCAL DAILY lurasidone 60 mg tablet 80 mg PO DAILY promethazine 25 mg tablet 25 mg PO ONCE PRN glipizide 10 mg tablet 10 mg PO BID empagliflozin 25 mg tablet 25 mg PO DAILY propranolol 10 mg tablet 10 mg PO TID mirtazapine 30 mg tablet 30 mg PO HS topiramate 25 mg tablet 25 mg PO DAILY Nurtec ODT 75 mg tablet,disintegrating 75 mg PO .every other day 30 Days Qty: 15 2RF Rx Instructions: Take 1 tab by mouth every other day for migraine prophylaxis. cephalexin 500 mg capsule 500 mg PO QID 7 Days Qty: 28 0RF methylprednisolone [Medrol (Leon)] 4 mg tablets,dose pack See Rx Instructions .Route .COMPLEX 6 Days Qty: 21 0RF Rx Instructions: taper pack; Cortisporin-TC 3.3-3-10-0.5 mg/mL drops,suspension 4 drp otic (ear) TID Qty: 10 0RF ciprofloxacin HCl [Cipro] 250 mg tablet 250 mg PO BID Qty: 20 0RF ketorolac 10 mg tablet 10 mg PO Q8H 5 Days Qty: 15 0RF acetaminophen 500 MG tablet 1,000 mg PO Q8H PRN (Reason: (Photoengraving Photographer Use Only) Pain Per Pt) Qty: 60 0RF Referrals Follow up/Referrals: Michael Ha [Primary Care Provider] - See instructions Clinical Impressions Clinical Impression: Suicidal ideation, Thoughts of harming others Discharge ED Provider: Herlinda Matthews General Adult HPI General Chief complaint: Psychiatric Symptoms Stated complaint: Referred by therapist for evaluation for Stoner Cr Time Seen by Provider: 11/17/23 16:55 History of Present Illness HPI narrative: Patient is a 43-year-old female presenting today with suicidal ideation and thoughts of harming others. She states that she is in a guardianship with her parents due to something that happened many years in the past that she did not get into and presents today as she states he has been having so much disagreement with her parents that she has been having thoughts of hurting them. She does not want to kill them but she has gotten to the point where she wants to fight them. She also states that she has had many family members recently and that she just does not want to live anymore and that she has been having thoughts of killing herself. She admits to using marijuana is on Suboxone but denies any other alcohol or drug use. She has not attempted suicide. Her parents are aware that she is here and are supportive according to the patient. Related Data Home Medications Medication Instructions Recorded Confirmed omeprazole magnesium 20 mg 20 mg PO DAILY unknown 01/19/18 12/31/20 tablet,delayed release (Prilosec OTC) albuterol sulfate 90 mcg/actuation 1 inh inhalation Q4H 09/03/18 12/31/20 breath activated powder inhaler buprenorphine 8 mg-naloxone 2 mg 1 film buccal DAILY 10/04/19 12/31/20 sublingual film lurasidone 60 mg tablet 80 mg PO DAILY 01/05/20 12/31/20 empagliflozin 25 mg tablet 25 mg PO DAILY 09/25/20 12/31/20 glipizide 10 mg tablet 10 mg PO BID 09/25/20 12/31/20 lamotrigine 25 mg tablet 100 mg PO BID 09/25/20 12/31/20 promethazine 25 mg tablet 25 mg PO ONCE PRN 09/25/20 12/31/20 mirtazapine 30 mg tablet 30 mg PO HS 11/12/20 12/31/20 propranolol 10 mg tablet 10 mg PO TID 11/12/20 12/31/20 topiramate 25 mg tablet 25 mg PO DAILY 12/31/20 12/31/20 Previous Rx's Medication Instructions Recorded acetaminophen 500 mg tablet 1,000 mg (2 x 500 mg) PO Q8H PRN 06/21/19 (Photoengraving Photographer Use Only) Pain Per Pt #60 tabs rimegepant 75 mg disintegrating 75 mg PO .every other day headache 01/03/21 tablet (Nurtec ODT) prophylaxis 30 days #15 tabs cephalexin 500 mg capsule 500 mg PO QID 7 days #28 caps 07/27/22 methylprednisolone 4 mg tablets in See Rx Instructions .Route 07/27/22 a dose pack (Medrol (Leon)) .COMPLEX 6 days #21 tabs ciprofloxacin HCl 250 mg tablet 250 mg PO BID #20 tabs 12/05/22 (Cipro) [id number] 3.3 4 drp otic (ear) TID #10 mL 12/05/22 mg-3 mg-10 mg-0.5 mg/mL ear drops,susp (Cortisporin-TC) ketorolac 10 mg tablet 10 mg PO Q8H 5 days #15 tabs 11/13/23 Allergies Allergy/AdvReac Type Severity Reaction Status Date / Time morphine Allergy Intermediate VOMITING Verified 11/13/23 14:27 [facility] Disclaimer: The information contained in this section may have been updated after the patient was seen, as this information can be updated by other users. Social History Smoking Status: Never smoker second hand exposure: Yes alcohol intake: never substance use type: former substance user and opiates current occupational status: disabled and other Travel in the last 8 weeks: None household members: other housing: house ROS Obtained: Yes All systems reviewed & no additional complaints except as documented Physical Exam General General appearance: alert and in no apparent distress Respiratory Respiratory exam: Present normal lung sounds bilaterally Cardiovascular Cardiovascular exam: Present regular rate Neurological Exam Neurological exam: Present alert and oriented X3 Psychiatric Psychiatric exam: Present suicidal ideation and other (Thoughts of harming others but not wanting to kill others) Medical Decision Making Chris Inquiry Pt receiving controlled substance: No Vital Signs: 11/17/23 17:13 11/17/23 18:14 11/17/23 18:31 Temperature 98.2 F Temperature Source Oral Pulse Rate 106 H 102 H Pulse Rate [Left Radial] 107 H Respiratory Rate 20 Blood Pressure 137/87 127/80 Blood Pressure [Right Arm] 124/90 Blood Pressure Mean [Right Arm] 101 02 Sat by Pulse Oximetry 96 95 91 L Oxygen Delivery Method Room Air Room Air Room Air Lab Data Lab results reviewed: Yes I reviewed the patient's lab results. Lab Results 11/17/23 16:56: Urine Color Yellow, Urine Appearance Clear, Urine pH 6.0, Ur Specific Handley 1.010, Urine Protein Trace, Urine Glucose (UA) 3+, Urine Ketones Negative, Urine Blood 3+, Urine Nitrate Negative, Urine Bilirubin Negative, Urine Urobilinogen 0.2, Ur Leukocyte Esterase Trace, Urine RBC 5-10, Urine WBC Occasional, Ur Squamous Epith Cells 10-20, Urine Bacteria Trace, Urine Yeast 1+, Urine HCG, Qual Negative, Urine Opiates Screen Negative, Urine Methadone Screen Negative, Ur Barbituates Screen Negative, Ur Phencyclidine Scrn Negative, Ur Amphetamines Screen Negative, U Benzodiazepines Scrn Negative, Urine Cocaine Screen Negative, U Marijuana (THC) Screen Positive H 11/17/23 17:13: WBC 15.3 H, RBC 5.88 H, Hgb 17.6 H, Hct 56.2 H, MCV 95.5, MCH 29.9, MCHC 31.3 L, RDW 16.2, Plt Count 243, MPV 8.0, Neut % (Auto) 76.7, Lymph % (Auto) 16.8, [place] % (Auto) 4.3, Eos % (Auto) 1.3, Baso % (Auto) 0.9, Neut # (Auto) 11.8 H, Lymph # (Auto) 2.6, [place] # (Auto) 0.7, Eos # (Auto) 0.2, Baso # (Auto) 0.1, Total Counted 100, Neutrophils % (Manual) 83 H, Lymphocytes % (Manual) 12, Atypical Lymphs % 1.0, Monocytes % (Manual) 4, Platelet Estimate Normal, Hypochromasia 2+, Macrocytosis 1+, Sodium 134 L, Potassium 4.0, Chloride 102, Carbon Dioxide 23, Anion Gap 13.0, BUN 10, Creatinine 0.80, Estimated Creat Clear 84, Estimated GFR 78, Est GFR ( Amer) 94, Glucose 254 H, Calcium 9.2, Total Bilirubin 0.7, AST 33, ALT 36, Alkaline Phosphatase 151 H, Total Protein 8.0, Albumin 4.1, Globulin 3.9 H, Albumin/Globulin Ratio 1.1, S alicylates < 1.0 L, Acetaminophen < 10 L, Plasma/Serum Alcohol < 10 11/17/23 17:13 11/17/23 17:13 Orders (Tests/Meds): ORDERS Category Date Time Status Acetaminophen Stat Lab 11/17/23 17:13 Completed Complete Blood Count Auto Diff Stat Lab 11/17/23 17:13 Completed Comprehensive Metabolic Panel Stat Lab 11/17/23 17:13 Completed Drug Screen,Urine Stat Lab 11/17/23 16:56 Completed Ethyl Alcohol Stat Lab 11/17/23 17:13 Completed Salicylate Stat Lab 11/17/23 17:13 Completed Urinalysis and Microscopic Stat Lab 11/17/23 16:56 Completed Urine , HCG Qual. Stat Lab 11/17/23 16:56 Completed Medical Decision Narrative: 43-year-old who is alert oriented answering questions appropriately not in cough toxic aided presents today with above history and physical. She is very cooperative and pleasant. She specifically states that she has been to [facility] before feels without the good facility for her to go back to. She states that she would like to go there for her mental health but also because her living situation is so toxic she is afraid she might hurt herself or others. Reassessment patient remains very stable at 724 no other symptoms. Labs returned were just screening labs. Urinalysis has contamination she has no signs or symptoms of UTI will not treat this. Labs otherwise unremarkable aside from positive marijuana which she already admitted to from historical clinical standpoint. She is cleared from my standpoint from a emergent medical condition we are waiting [facility] [place] which we anticipate that she will go to. An addendum will be added if disposition changes outside of this. Critical Care Critical Care Time Critical Care Time: No
[2023-11-17 17:13] VITALS: BP 124/90; PULSE 107; RESP 20; TEMP 36.8; O2SAT 96; BMI 45.1
--- NOTE | 2023-11-17 17:19 | ECG_ITS ---
APPROVED REPORT Exam: Resting ECG HR:104 bpm ECG Measurements Heart Rate 104 AXES NC 172 P 53 QRSd 92 QRS 19 QT 322 T 28 QTc 382 Conclusion SINUS TACHYCARDIA POSSIBLE RIGHT ATRIAL ENLARGEMENT [0.25mV P-WAVE] POSSIBLE RIGHT VENTRICULAR CONDUCTION DELAY [RSR (QR) IN V1/V2] ABNORMAL RHYTHM ECG UNCONFIRMED REPORT Electronically signed by : Daniel Matthews, 11/17/2023 22:53:15
[2023-11-17 17:24] LABS: Microscopic, Urine URINE MICROSCOPIC (MICROSCOPIC)
[2023-11-17 17:26] LABS: Appearance,Urine CLEAR (Clear); Bilirubin,Urine Negative (Negative); Blood, Urine 3+ (Negative); Color,Urine YELLOW (Yellow); Glucose,Urine (UA) 3+ (Negative); Ketones,Urine Negative (Negative); Leukocyte Esterase,Urine TRACE (Negative); Nitrate,Urine Negative (Negative); Protein,Urine TRACE (Negative); Urobilinogen,Urine 0.2 EU/dl (0.2)
[2023-11-17 17:32] LABS: Basophils # 0.1 K/mm3 (0-0.2); Basophils % 0.9 % (0.1-2.0); Chloride 102 mmol/L (98-107); Eosinophils # 0.2 K/mm3 (0.0-0.4); Eosinophils % 1.3 % (0.1-12.0); Hemoglobin 17.6 g/dL (12.2-16.2); Lymphocytes # 2.6 K/mm3 (0.7-4.5); Lymphocytes % 16.8 % (10-50); Mean Corpuscular HGB Conc 31.3 g/dL (31.8-35.4); Mean Corpuscular Hemoglobin 29.9 pg (27.0-31.2); Mean Corpuscular Volume 95.5 fl (81-99); Monocytes # 0.7 K/mm3 (0.1-1.0); Monocytes % 4.3 % (1.7-9.3); Neutrophils # 11.8 K/mm3 (1.8-7.8); Neutrophils % 76.7 % (37.0-80.0); Platelet Count 243 K/mm3 (142-424); Red Blood Count 5.88 M/mm3 (4.20-5.40); Red Cell Distribution Width 16.2 % (11.5-17.5); Sodium 134 mmol/L (136-145); White Blood Count 15.3 K/mm3 (4.8-10.8)
[2023-11-17 17:34] LABS: Blood Urea Nitrogen 10 mg/dl (7-17); Creatinine Clearance Estimated 84 mL/min (50-200); Estimated Glomerular Filt Rate 78 ml/min (>60); GFR (African American) 94 ML/MIN (>60)
[2023-11-17 17:34] LABS: Urine Pregnancy, HCG Qual. Negative (Negative)
[2023-11-17 17:35] LABS: Acetaminophen < 10 ug/ml (10-30); Alanine Aminotransferase 36 U/L (12-78); Albumin Level 4.1 g/dl (3.5-5.0); Albumin/Globulin Ratio 1.1 (1.1-1.8); Alkaline Phosphatase 151 U/L (38-126); Aspartate Amino Transferase 33 U/L (14-36); Bilirubin,Total 0.7 mg/dl (0.2-1.3); Calcium 9.2 mg/dl (8.4-10.2); Carbon Dioxide 23 mmol/L (22.0-30.0); Ethyl Alcohol < 10 mg/dl (0-10); Globulin 3.9 g/dL (1.3-3.2); Glucose 254 mg/dl (74-100); Salicylate < 1.0 mg/dL (2.0-20.0)
[2023-11-17 17:41] LABS: Barbiturates Screen,Urine Negative ng/ml (<200); Benzodiazepines Screen,Urine Negative ng/ml (<200)
[2023-11-17 17:42] LABS: Amphetamine/Metha Screen,Urine Negative ng/ml (<1000)
[2023-11-17 17:43] LABS: Cannabinoid Screen,Urine Positive ng/ml (<50); Methadone Screen,Urine Negative ng/ml (<300)
[2023-11-17 17:44] LABS: Cocaine Screen,Urine Negative ng/ml (<300); Opiate Screen,Urine Negative ng/ml (<300)
[2023-11-17 17:45] LABS: Phencyclidine Screen,Urine Negative ng/ml (<25)
[2023-11-17 18:07] LABS: Bacteria,Urine Trace /lpf; WBC,Urine Occasional #/hpf (0-3); Yeast,Urine 1+ /lpf
[2023-11-17 18:09] LABS: Hematocrit 56.2 % (37.0-47.0); MANUAL DIFFERENTIAL MANUAL DIFFERENTIAL (MANUAL DIFF)
[2023-11-17 18:14] VITALS: BP 137/87; PULSE 106; O2SAT 95
[2023-11-17 18:31] VITALS: BP 127/80; PULSE 102; O2SAT 91
[2023-11-17 18:52] LABS: Lymphocytes % 12 % (10-50); Monocytes % 4 % (2-9); Neutrophils % 83 % (42-76); Total Cells Counted 100
[2023-11-17 18:53] LABS: Hypochromasia 2+; Macrocytosis 1+; Platelet Estimate Normal
--- NOTE | 2023-11-17 19:52 | PC.NURSE ---
received zoom call from [facility] [employer] [facility].rich is speaking with patient at this time
--- NOTE | 2023-11-17 20:49 | PC.NURSE ---
Pt advised she could not go outside to smoke here, but there was a smoking area once she arrived at [facility]
--- NOTE | 2023-11-17 20:54 | PC.NURSE ---
Awaiting on Dulce from [facility] to call back
--- NOTE | 2023-11-17 21:08 | PC.NURSE ---
POC glucose being obtained, spoke with Dulce at [facility] is accepting with glucose under 250
--- NOTE | 2023-11-17 21:14 | PC.NURSE ---
vo received for 10 units reg insulin and 1liter of LR TO DECREASE FSBS prior to transport
[2023-11-17] MEDS: INSULIN HUMAN REGULAR 100 UNITS/ML 10ML VIAL 10 UNIT IVP (21:40)
[2023-11-17] MEDS: LACTATED RINGERS 1000ML 1,000 ML 999 ML IV (21:40)
--- NOTE | 2023-11-17 21:56 | PC.NURSE ---
POC glucose 124
[2023-11-17 22:20] VITALS: BP 114/83; PULSE 94; RESP 16; TEMP 36.6; O2SAT 97
== END 2023-11-17 22:27 | disposition other institution (70) ==
PROVIDERS: Emergency Provider Student in an Organized Health Care Education/Training Program; PCP Family Medicine
DX: R45.851 Suicidal ideations (principal); R00.0 Tachycardia, unspecified; R45.89 Other symptoms and signs involving emotional state; R73.9 Hyperglycemia, unspecified
CPT/HCPCS: 80053; 80307; 80320; 80329; 81001; 81025; 85007; 85025; 93005; 96361; 96374; 99285; G0480; J7120